=== PATIENT | male | born 2000 | race Caucasian/White ===

== ENCOUNTER 2020-05-22 15:58 | Emergency (ER) | payer BC ==
[~2020-05-22] VITALS: Ht 188 cm; Wt 75.0 kg
[2020-05-22] MEDS ORDERED: NORCO 325 MG-51 TAB PO (16:56)
[2020-05-22 17:31] VITALS: BP 118/74; PULSE 76; TEMP 97.6
== END 2020-05-22 17:35 | disposition home or self-care (01) ==
LOC: COL.ER 15:58
DX: S93.401A Sprain of unspecified ligament of right ankle, initial encounter (principal); X50.1XXA Overexertion from prolonged static or awkward postures, initial encounter; Y93.64 Activity, baseball
CPT/HCPCS: J3010